=== PATIENT | female | born 1965 | race Caucasian/White ===

== ENCOUNTER → 2016-10-27 | Outpatient (CLI) | payer MEDICARE, MEDICAID ==
[~2016-10-27] MED LIST: ALDACTONE25 MG PO; BENADRYL25 MG PO; BUMEX1 MG PO; DEMADEX20 MG PO; FLONASE 50 MCG/16 GM NOSE; HUMULIN R500 UNIT/M SUB-Q; KCL UD LIQ20 MEQ/15 PO; KEFLEX500 MG PO; LEXAPRO20 MG PO; LISINOPRIL-HCT1 EAC1 PO; PRENATAL 1+1)(P1 TAB PO; PROAIR HFA8.5 GM INH; SYMBICORT 16010.2 GM INH; ULTRAM50 MG PO; ZOCOR20 MG PO; ZYLOPRIM100 MG PO
== END | disposition disaster alternative care site (69) ==
LOC: GAMB 12:41
DX: S99.921D Unspecified injury of right foot, subsequent encounter (principal); E10.8 Type 1 diabetes mellitus with unspecified complications; J44.9 Chronic obstructive pulmonary disease, unspecified; I50.9 Heart failure, unspecified; M79.671 Pain in right foot; R11.0 Nausea; Z79.4 Long term (current) use of insulin; Z79.899 Other long term (current) drug therapy; Z88.6 Allergy status to analgesic agent; X58.XXXD Exposure to other specified factors, subsequent encounter